=== PATIENT | male | born 1960 | race Caucasian/White ===

== ENCOUNTER 2020-12-25 12:44 | Outpatient (REF) | payer MEDICAID, SELFPAY ==
--- NOTE | ~2020-12-25 | US_ITS ---
EXAMINATION: COLOR-FLOW DUPLEX IMAGING OF THE BILATERAL LOWER EXTREMITY ARTERIAL SYSTEM. VELOCITY MEASUREMENTS THROUGHOUT THE FEMORAL ARTERIES CLINICAL INFORMATION: This is a 60-year-old male with peripheral vascular disease. Interventional Radiologist: Robert Mead M.D., F.S.I.R., F.A.C.R. RIGHT FEMORAL RUNOFF VELOCITIES: The right common femoral artery measures 102 cm/s and triphasic. The right profunda femoral artery is 98 cm/s and is triphasic. Right proximal superficial femoral artery measures 100 cm/s and triphasic. Mid superficial femoral artery is 95 cm/s and triphasic. Distal right superficial femoral artery measures 86 cm/s and is triphasic. Right popliteal velocity measures 63 cm/s and is triphasic. The posterior tibial artery velocity measures 59 cm/s and was triphasic. LEFT FEMORAL RUNOFF VELOCITIES: The left common femoral artery measures 123 cm/s and triphasic. The left profunda femoral artery is 75 cm/s and is triphasic. Left proximal superficial femoral artery measures 94 cm/s and triphasic. Mid superficial femoral artery is 100 cm/s and triphasic. Distal left superficial femoral artery measures 104 cm/s and is triphasic Left popliteal velocity measures 86 cm/s and is triphasic. The posterior tibial artery velocity measures 57 cm/s and was triphasic. US/US arterial duplex LE BI IMPRESSION: 1. Normal bilateral resting peripheral arterial testing without evidence of hemodynamically significant stenosis
== END 2020-12-25 12:45 | disposition home or self-care (01) ==
LOC: HO.US 12:44
PROVIDERS: Visit Provider Internal Medicine
DX: I73.9 Peripheral vascular disease, unspecified (principal)
CPT/HCPCS: 93925

== ENCOUNTER 2020-12-28 13:15 | Outpatient (REF) | payer MEDICAID, SELFPAY ==
--- NOTE | ~2020-12-28 | XR_ITS ---
EXAMINATION: XR KNEE, RIGHT CLINICAL INFORMATION: Pain COMPARISON: None TECHNIQUE: Four views of the right knee. FINDINGS: Bone alignment is normal. No fracture or dislocation is seen. There is mild medial femoral tibial joint space narrowing. Joint spaces are otherwise normal. There is no joint effusion. XR/XR knee RT 4V IMPRESSION: Mild medial femoral tibial joint space narrowing otherwise unremarkable exam.
== END 2020-12-28 13:16 | disposition home or self-care (01) ==
LOC: HO.XRAY 13:15
PROVIDERS: PCP Internal Medicine; Visit Provider Internal Medicine
DX: M25.561 Pain in right knee (principal)
CPT/HCPCS: 73564

== ENCOUNTER → 2021-01-16 10:03 | Outpatient (BNVA) | payer MEDICAID, SELFPAY | PROVIDERS: PCP Internal Medicine; Visit Provider Physician Assistant | DX: M17.11 Unilateral primary osteoarthritis, right knee (principal) | CPT/HCPCS: 99202 ==

== ENCOUNTER 2021-03-27 10:00 | Outpatient (RCR) | payer MEDICAID, SELFPAY ==
[2021-02-08 09:08] VITALS: BP 181/102; PULSE 76
--- NOTE | 2021-02-08 09:58 | MHC.PT.EP ---
[facility] [place] Office [place] Office [place] Office [address] [phone] F: [phone] F: [phone] F: [phone] F: [phone] Physical Therapy Plan of Care Date of Evaluation: Date of Surgery: NA Diagnosis: Unilateral primary OA of R knee Assessment: 60 year old male referred for unilateral primary OA of R knee . Pt reports of having h/o chronic knee pain which has gotten worse past winter. He denies any recent trauma or falls. Examination reveals 6/10 pain R knee, decreased knee ROM, TTP over medial joint line, decreased muscle strength, altered posture and gait. She would benefit from therapy to address the aforementioned impairments to increase tolerance to sitting, standing, walking, stair climbing and sleep. He lives with is and is independent with ADLs but modifies them due to knee pain. He is motivated to participate in therapy. Frequency and Duration: The patient will be seen 2/week for 5 weeks Short Term Goals: 1. Pt will have 50% decrease in pain so as to be able to sleep through the night in 2 weeks. 2. Pt will be able to move knee through full ROM without any pain so as to increase his tolerance to sitting and stair climbing in 3 weeks. Retirement Goals: 1. Pt will demonstrate an increase muscle strength by 1 grade so as to increase his tolerance to standing and walking in 5 weeks 2. Pt will be independent with HEPs for symptoms management and maintenance following d/c in 5 weeks. Treatment Plan: Modalities to reduce pain, spasms and effusion. Manual therapy to restore motion and function. Therapeutic exercise to improve strength and flexibility. Neuromuscular re-education for posture and balance. Therapeutic activities to return to functional activities of daily living. Electronically signed by: Aliza Brown, PT, DPT Please sign and return to therapist. Thank you for your referral.
--- NOTE | 2021-03-27 10:54 | MHC.PT.DC ---
[facility] [place] Office [place] Office [place] Office [address] Darlin Jenkins [address] [phone] F: [phone] F: [phone] F: [phone] F: [phone] Physical Therapy Discharge Report Diagnosis: Unilateral primary OA of R knee Date of Surgery: NA Date of Evaluation: 02/08/21 Date of Discharge: 03/27/21 Treatments to Date: 11 Cancellations to Date: 0 No Shows to Date: 0 Discharge Status: Achieved Goals Improved Function Independent with HEP Discharge Summary: 03/27/2021-Martin has completed 11 PT visits and arrived today saying he feels great with no pain. Today will be his last visit with PT and he will be d/c after. He has met all short term and custodial goals. He will continue his HEP independently for symptom management at home. This plan of care and education has been discussed and Mratin is in agreement. Electronically signed by: Aliza Brown, PT DPT Please sign and return to therapist. Thank you for your referral.
== END 2021-03-27 10:54 | disposition other institution (70) ==
LOC: HO.PT 10:00
PROVIDERS: PCP Internal Medicine; Visit Provider Physician Assistant
DX: M17.11 Unilateral primary osteoarthritis, right knee (principal)
CPT/HCPCS: 97110; 97112; 97140; 97161; 97530